=== PATIENT | male | born 1980 | race Caucasian/White ===

== ENCOUNTER 2025-03-05 01:34 | Emergency (ER) | payer MEDICAID ==
[~2025-03-05] VITALS: Ht 170.2 cm; Wt 82.0 kg
[2025-03-05 01:38] VITALS: O2SAT 98
[2025-03-05] MEDS: LEVETIRACETAM 500MG PREMIX 100 ML IV ONE (02:39)
[2025-03-05 04:03] VITALS: TEMP 36.9
[2025-03-05 05:47] VITALS: BP 123/81; PULSE 74; RESP 15; O2SAT 99
== END 2025-03-05 05:57 | disposition home or self-care (01) ==
LOC: ER 02:14
DX: G40.909 Epilepsy, unspecified, not intractable, without status epilepticus (principal); F12.90 Cannabis use, unspecified, uncomplicated; Z79.899 Other long term (current) drug therapy
CPT/HCPCS: 99284; 96374; 93005; J1953; 96372